=== PATIENT | male | born 1990 ===

== ENCOUNTER 2021-12-11 08:01 | Outpatient (CLI) | payer OTHER | END 2021-12-11 08:02 | disposition home or self-care (01) | LOC: DI 08:01 | PROVIDERS: ATTEND Physician Assistant | DX: R07.89 Other chest pain (principal); R06.02 Shortness of breath | CPT/HCPCS: 93306 ==

== ENCOUNTER 2022-03-27 10:09 | Outpatient (CLI) | payer OTHER ==
--- NOTE | 2022-03-27 14:29 | MRI Report ---
PROCEDURE: ANKLE WO - LT INDICATIONS: ANKLE INJURY TECHNIQUE: Noncontrast Magnetic Resonance Imaging (MRI) of the ankle/hindfoot was performed utilizing the follow ing sequences: sagittal T1 spin echo, sagittal STIR, axial PD fast spin echo, axial T2 fast spin echo with fat saturation, coronal PD fast spin echo with fat saturation, and coronal T2 fast spin echo wi th fat saturation. COMPARISON: None. FINDINGS: Image quality: Excellent. Bones and joints: No acute trabecular bone injury or fracture. No hindfoot coalition. The ankle mortise is maintained. No osteochondral defect is seen at the talar dome. No significant degenerative changes are seen in t he midfoot or hindfoot. Medial structures: The deltoid ligament and the spring ligament are intact. The posterior tibialis, flexor digitorum camron pacheco, and flexor hallucis longus tendons are intact. The posterior tibial neurovascular bundle appears normal within the tarsal tunnel, without extrinsic mass effect. Lateral structures: The anterior and posterior distal tibiofibular ligaments are intact. The anterior talofibular ligamen t, posterior talofibular ligament, and calcaneofibular ligament are intact. The peroneus longus and p eroneus brevis tendons are intact. The sinus tarsi demonstrates normal fatty signal. Anterior structures: The tibialis anterior, extensor hallucis longus, and extensor digitorum longus tendons appear intact. Posterior and plantar structures: The Achilles tendon is intact. The medial and lateral bands of the plantar fascia are within normal l imits. No disproportionate atrophy of the abductor digiti minimi muscle. IMPRESSION: No acute trabecular bone injury. No significant ligament or tendon injury is seen in the left ankle. Reviewed by: Magdiel Mcdowell MD on 03/27/2022 2:28 PM PST Approved by: Magdiel Mcdowell MD on 03/27/2022 2:28 PM PST Station ID: [id number]
== END 2022-03-27 10:10 | disposition home or self-care (01) ==
LOC: DI 10:09
PROVIDERS: ATTEND Physician Assistant
DX: S99.912A Unspecified injury of left ankle, initial encounter (principal)